=== PATIENT | female | born 1980 | race African-American/Black ===

== ENCOUNTER 2017-07-24 06:13 | Inpatient (IN) | payer OTHER ==
[~2017-07-24] VITALS: Ht 157.5 cm; Wt 126.5 kg
[2017-07-24] MEDS ORDERED: ATARAX10 MG PO (06:32)
[2017-07-24] MEDS ORDERED: SEROQUEL12.5 MG PO (06:32)
[2017-07-24] MEDS ORDERED: LATUDA20 MG PO (06:33)
[2017-07-24] MEDS ORDERED: SERTRALINE HCL25 MG PO (06:33)
[2017-07-24 07:38] LABS: HEMATOCRIT 41.7 % (36.0-46.0); MCH 27.3 PG (29.0-34.0); MCHC 32.4 G/DL (30.0-36.0); MCV 84.4 FL (83-99); MEAN PLAT.VOLUME 13.8 uM^3 (9.5-12.4); PLATELET COUNT 111 K/uL (156-360); RBC DIS.WIDTH-CV 14.6 % (11.8-14.6); RBC DIS.WIDTH-SD 44.4 % (39-53); RED BLOOD COUNT 4.94 M/uL (3.80-5.20); WHITE BLOOD COUNT 11.1 K/uL (4.1-10.2)
[2017-07-24 08:00] LABS: TROP-I INTERPRETATION NEGATIVE; TROPONIN-I < 0.01 ng/mL (0.0-0.30)
[2017-07-24 08:24] LABS: CHLORIDE 106 mEq/L (99-109); POTASSIUM 4.2 mEq/L (3.7-5.4); SODIUM 139 mEq/L (136-147)
[2017-07-24 08:25] LABS: GLUCOSE 83 mg/dL (70-99)
[2017-07-24 08:27] LABS: ANION GAP 9 MEQ/L (2-14)
[2017-07-24 08:29] LABS: GFR ESTIMATE (CALCULATED) > 59 mL/min/
[2017-07-24 08:30] LABS: UREA NITROGEN (BUN) 9 mg/dL (9-23)
[2017-07-24 08:37] LABS: QUANTITATIVE HCG < 4.0 MIU/ML
[2017-07-24 10:10] LABS: PROTHROMBIN TIME 11.4 SEC (10.2-12.9)
[2017-07-24 10:13] LABS: PTT 31.8 SEC (25-37)
[2017-07-24] MEDS ORDERED: ALEVE220 MG PO (11:39)
[2017-07-24] MEDS ORDERED: INDERAL10 MG PO (11:39)
[2017-07-24 12:44] VITALS: BP 131/90
[2017-07-24 15:51] VITALS: BP 111/71
[2017-07-24 16:14] LABS: TROP-I INTERPRETATION NEGATIVE; TROPONIN-I 0.01 ng/mL (0.0-0.30)
[2017-07-24 21:50] LABS: TROP-I INTERPRETATION NEGATIVE; TROPONIN-I < 0.01 ng/mL (0.0-0.30)
[2017-07-24 23:54] VITALS: BP 118/66
[2017-07-25 08:11] VITALS: BP 124/89
[2017-07-25 15:13] VITALS: BP 119/71
[2017-07-26 00:20] VITALS: BP 108/56
[2017-07-26 07:30] LABS: INTER. NORMALIZED RATIO 1.2; PROTHROMBIN TIME 12.7 SEC (10.2-12.9)
[2017-07-26 07:51] VITALS: BP 122/79
[2017-07-26 17:43] VITALS: BP 122/66
[2017-07-27 06:46] LABS: HEMATOCRIT 40.2 % (36.0-46.0); MCH 28.1 PG (29.0-34.0); MCHC 33.6 G/DL (30.0-36.0); MCV 83.8 FL (83-99); RBC DIS.WIDTH-CV 14.1 % (11.8-14.6); RBC DIS.WIDTH-SD 43.1 % (39-53); WHITE BLOOD COUNT 7.9 K/uL (4.1-10.2)
[2017-07-27 06:47] LABS: MEAN PLAT.VOLUME 11.8 uM^3 (9.5-12.4); PLATELET COUNT 179 K/uL (156-360)
[2017-07-27 07:00] LABS: INTER. NORMALIZED RATIO 1.3; PROTHROMBIN TIME 14.1 SEC (10.2-12.9)
[2017-07-27 07:46] VITALS: BP 119/66
[2017-07-27] MEDS ORDERED: NICOTINE PATCH1 EAC2 TD (09:19)
[2017-07-27] MEDS ORDERED: DUONEB 2.5-0.5 M3 ML AEROSOL (09:19)
[2017-07-27] MEDS ORDERED: TYLENOL REGULA325 MG PO (09:20)
[2017-07-27] MEDS ORDERED: FAMOTIDINE20 MG PO (09:20)
[2017-07-27 16:09] VITALS: BP 146/76
[2017-07-27 23:46] VITALS: BP 116/66
[2017-07-28 06:29] LABS: INTER. NORMALIZED RATIO 1.7; PROTHROMBIN TIME 18.5 SEC (10.2-12.9)
[2017-07-28 08:27] VITALS: BP 131/90
[2017-07-28] MEDS ORDERED: COUMADIN5 MG PO (11:29)
[2017-07-28] MEDS ORDERED: LOVENOX150 MG/1 M SC (11:29)
[2017-07-30 12:35] LABS: DRVVT Mixing Study Interp Not Indicated (()); PROTEIN C FUNCTIONAL ACTIVITY+ 153 % (70-180); PTT-LA 64 sec (<=40); PTT-LA Reflex Has been added (()); Protein S, Free 83 % normal (50-147); Thrombosis Consult Level Limited (()); dRVVT Screen 44 sec (<=45)
[2017-07-31 08:54] LABS: ANTITHROMBIN III ACTIVITY+ 107 % activi (80-120)
== END 2017-07-28 13:15 | disposition home or self-care (01) | DRG 299 ==
LOC: EDBD 06:13 → EME 06:13 → 5SOUTH 09:41 → EDOF 09:41 → ENRESERV 09:42 → 5SOUTH 11:56
PROVIDERS: Emergency Medicine; Family Medicine; Internal Medicine
DX: I82.403 Acute embolism and thrombosis of unspecified deep veins of lower extremity, bilateral (principal); I26.09 Other pulmonary embolism with acute cor pulmonale; J90 Pleural effusion, not elsewhere classified; E66.01 Morbid (severe) obesity due to excess calories; J98.11 Atelectasis; I10 Essential (primary) hypertension; Z68.43 Body mass index [BMI] 50.0-59.9, adult; F17.210 Nicotine dependence, cigarettes, uncomplicated; G47.33 Obstructive sleep apnea (adult) (pediatric); Z86.718 Personal history of other venous thrombosis and embolism; Z82.49 Family history of ischemic heart disease and other diseases of the circulatory system
CPT/HCPCS: 71275; 80048; 81240 90; 83090 90; 83880; 84484; 84702; 85027; 85240 90; 85300 90; 85303 90; 85305 90; 85306 90; 85307 90; 85610; 85613 90; 85670 90; 85730; 85730 90; 86146 90; 86147 90; 87641; 93005; 93306; 93970; 94640; 94660; 99202; 99281; 99285; J1650; J2270; J7030